=== PATIENT | male | born 1950 ===

== ENCOUNTER 2025-05-04 08:16 | Outpatient (CLI) | payer MEDICARE, SELFPAY ==
[2025-05-04 08:37] LABS: LDH 546 U/L (85-227); Uric Acid 4.9 mg/dL (3.5-7.2)
== END 2025-05-04 08:17 | disposition home or self-care (01) ==
LOC: LBO 08:17
PROVIDERS: Visit Provider Internal Medicine Hematology & Oncology
DX: C83.18 Mantle cell lymphoma, lymph nodes of multiple sites (principal)
CPT/HCPCS: 36415; 80053; 82784; 83615; 84550; 85025

== ENCOUNTER 2025-05-11 12:09 | Outpatient (CLI) | payer MEDICARE, SELFPAY ==
[2025-05-11 12:04] LABS: HCT 31.5 % (40.0-50.0); HGB 9.5 g/dL (13.5-17.5); MCH 28.9 pg (27.0-33.0); MCHC 30.2 % (32.0-36.0); MCV 96 fL (80-95); MPV 9.7 fL (8.0-11.0); Platelet Count 209 10^3/uL (130-400); RBC 3.29 10^6/uL (4.36-5.78); RDW 18.0 % (11.8-14.1); RDW-SD 61.2 fL
[2025-05-11 12:28] LABS: ALT 27 U/L (16-63); AST 16 U/L (15-37); Albumin 3.1 g/dL (3.4-5.0); Alkaline Phosphatase 76 U/L (46-116); Anion Gap 9.1 mmol/L (3-11); BUN 39 mg/dL (7-18); Bilirubin, Total 0.4 mg/dL (0.2-1.0); CO2 23.9 mmol/L (21.0-32.0); Calcium 8.2 mg/dL (8.5-10.1); Chloride 105 mmol/L (98-107); Estimated GFR 78.49 (mL/min/1.73m2); Glucose 95 mg/dL (74-106); LDH 597 U/L (85-227); Potassium 4.8 mmol/L (3.5-5.1); Sodium 138 mmol/L (136-145); Total Protein 5.6 g/dL (6.4-8.2); Uric Acid 4.9 mg/dL (3.5-7.2)
[2025-05-11 13:19] LABS: Abs Immature Grans 0.00 10^3/uL (0.0-0.06); Immature Grans % 0.0 %; RBC Morphology Normal
[2025-05-11 13:25] LABS: WBC 151.19 10^3/uL (4.4-10.8)
== END 2025-05-11 12:10 | disposition home or self-care (01) ==
LOC: LBO 12:09
PROVIDERS: Visit Provider Internal Medicine Hematology & Oncology
DX: C83.18 Mantle cell lymphoma, lymph nodes of multiple sites (principal)
CPT/HCPCS: 36415; 80053; 82784; 83615; 84550; 85025

== ENCOUNTER 2025-05-18 02:44 | Outpatient (CLI) | payer MEDICARE, SELFPAY ==
[2025-05-18 13:34] LABS: Abs Immature Grans 0.38 10^3/uL (0.0-0.06); HCT 30.9 % (40.0-50.0); HGB 9.8 g/dL (13.5-17.5); Immature Grans % 0.4 %; MCH 29.8 pg (27.0-33.0); MCHC 31.7 % (32.0-36.0); MCV 94 fL (80-95); MPV 9.4 fL (8.0-11.0); Platelet Count 215 10^3/uL (130-400); RBC 3.29 10^6/uL (4.36-5.78); RDW 17.1 % (11.8-14.1); RDW-SD 57.5 fL
[2025-05-18 13:52] LABS: ALT 26 U/L (16-63); AST 17 U/L (15-37); Albumin 2.9 g/dL (3.4-5.0); Alkaline Phosphatase 81 U/L (46-116); Anion Gap 12.4 mmol/L (3-11); BUN 33 mg/dL (7-18); Bilirubin, Total 0.4 mg/dL (0.2-1.0); CO2 21.6 mmol/L (21.0-32.0); Calcium 9.0 mg/dL (8.5-10.1); Chloride 106 mmol/L (98-107); Estimated GFR 70.01 (mL/min/1.73m2); Glucose 120 mg/dL (74-106); LDH 605 U/L (85-227); Potassium 4.6 mmol/L (3.5-5.1); Sodium 140 mmol/L (136-145); Total Protein 5.5 g/dL (6.4-8.2); Uric Acid 5.5 mg/dL (3.5-7.2)
[2025-05-18 14:18] LABS: RBC Morphology Normal
[2025-05-18 14:22] LABS: WBC 97.86 10^3/uL (4.4-10.8)
== END 2025-05-18 02:45 | disposition home or self-care (01) ==
LOC: LBO 02:44
PROVIDERS: Visit Provider Internal Medicine Hematology & Oncology
DX: C83.18 Mantle cell lymphoma, lymph nodes of multiple sites (principal)
CPT/HCPCS: 36415; 80053; 82784; 83615; 84550; 85025

== ENCOUNTER 2025-05-25 13:22 | Outpatient (CLI) | payer MEDICARE, SELFPAY ==
[2025-05-25 13:05] LABS: Abs Immature Grans 0.54 10^3/uL (0.0-0.06); HCT 32.1 % (40.0-50.0); HGB 9.8 g/dL (13.5-17.5); Immature Grans % 0.3 %; MCH 28.6 pg (27.0-33.0); MCHC 30.5 % (32.0-36.0); MCV 94 fL (80-95); MPV 10.2 fL (8.0-11.0); Platelet Count 300 10^3/uL (130-400); RBC 3.43 10^6/uL (4.36-5.78); RDW 16.2 % (11.8-14.1); RDW-SD 54.1 fL
[2025-05-25 13:16] LABS: WBC 168.83 10^3/uL (4.4-10.8)
[2025-05-25 13:24] LABS: ALT 20 U/L (16-63); AST 19 U/L (15-37); Albumin 3.1 g/dL (3.4-5.0); Alkaline Phosphatase 72 U/L (46-116); Anion Gap 11.4 mmol/L (3-11); BUN 49 mg/dL (7-18); Bilirubin, Total 0.7 mg/dL (0.2-1.0); CO2 21.6 mmol/L (21.0-32.0); Calcium 8.7 mg/dL (8.5-10.1); Chloride 102 mmol/L (98-107); Estimated GFR 57.29 (mL/min/1.73m2); Glucose 133 mg/dL (74-106); LDH 571 U/L (85-227); Sodium 135 mmol/L (136-145); Total Protein 5.9 g/dL (6.4-8.2); Uric Acid 11.2 mg/dL (3.5-7.2)
[2025-05-25 13:28] LABS: Potassium 5.3 mmol/L (3.5-5.1)
[2025-05-25 13:35] LABS: RBC Morphology Normal
== END 2025-05-25 13:23 | disposition home or self-care (01) ==
LOC: LBO 13:23
PROVIDERS: Visit Provider Internal Medicine Hematology & Oncology
DX: C83.18 Mantle cell lymphoma, lymph nodes of multiple sites (principal)
CPT/HCPCS: 80053; 82784; 83615; 84550; 85025

== ENCOUNTER 2025-05-30 03:52 | Outpatient (CLI) | payer MEDICARE, SELFPAY ==
[2025-05-30 12:38] LABS: HCT 29.6 % (40.0-50.0); HGB 9.5 g/dL (13.5-17.5); MCH 30.2 pg (27.0-33.0); MCHC 32.1 % (32.0-36.0); MCV 94 fL (80-95); MPV 10.6 fL (8.0-11.0); Platelet Count 376 10^3/uL (130-400); RBC 3.15 10^6/uL (4.36-5.78); RDW 16.1 % (11.8-14.1); RDW-SD 54.3 fL
[2025-05-30 13:07] LABS: ALT 18 U/L (16-63); AST 19 U/L (15-37); Albumin 2.8 g/dL (3.4-5.0); Alkaline Phosphatase 57 U/L (46-116); Anion Gap 12.9 mmol/L (3-11); BUN 47 mg/dL (7-18); Bilirubin, Total 0.8 mg/dL (0.2-1.0); CO2 18.1 mmol/L (21.0-32.0); Calcium 9.1 mg/dL (8.5-10.1); Chloride 103 mmol/L (98-107); Estimated GFR 57.29 (mL/min/1.73m2); Glucose 118 mg/dL (74-106); LDH 458 U/L (85-227); Potassium 4.3 mmol/L (3.5-5.1); Sodium 134 mmol/L (136-145); Total Protein 5.5 g/dL (6.4-8.2); Uric Acid 8.6 mg/dL (3.5-7.2)
[2025-05-30 13:17] LABS: Abs Immature Grans 0.00 10^3/uL (0.0-0.06); Immature Grans % 0.0 %; RBC Morphology Normal
[2025-05-30 13:18] LABS: WBC 96.81 10^3/uL (4.4-10.8)
== END 2025-05-30 03:53 | disposition home or self-care (01) ==
LOC: LBO 03:52
PROVIDERS: Visit Provider Internal Medicine Hematology & Oncology
DX: C83.18 Mantle cell lymphoma, lymph nodes of multiple sites (principal)
CPT/HCPCS: 36415; 80053; 82784; 83615; 84550; 85025

== ENCOUNTER 2025-06-08 02:11 | Outpatient (CLI) | payer MEDICARE, SELFPAY ==
[2025-06-08 13:07] LABS: Abs Immature Grans 0.16 10^3/uL (0.0-0.06); HCT 26.1 % (40.0-50.0); HGB 8.1 g/dL (13.5-17.5); MCH 29.1 pg (27.0-33.0); MCHC 31.0 % (32.0-36.0); MCV 94 fL (80-95); MPV 10.3 fL (8.0-11.0); Platelet Count 367 10^3/uL (130-400); RBC 2.78 10^6/uL (4.36-5.78); RDW 15.0 % (11.8-14.1); RDW-SD 51.4 fL
[2025-06-08 13:14] LABS: WBC 41.81 10^3/uL (4.4-10.8)
[2025-06-08 13:20] LABS: ALT 20 U/L (16-63); AST 13 U/L (15-37); Albumin 2.3 g/dL (3.4-5.0); Alkaline Phosphatase 65 U/L (46-116); Anion Gap 8.6 mmol/L (3-11); BUN 26 mg/dL (7-18); Bilirubin, Total 0.6 mg/dL (0.2-1.0); CO2 24.4 mmol/L (21.0-32.0); Calcium 8.7 mg/dL (8.5-10.1); Chloride 100 mmol/L (98-107); Estimated GFR 70.01 (mL/min/1.73m2); Glucose 98 mg/dL (74-106); LDH 247 U/L (85-227); Potassium 4.2 mmol/L (3.5-5.1); Sodium 133 mmol/L (136-145); Total Protein 5.0 g/dL (6.4-8.2); Uric Acid 6.0 mg/dL (3.5-7.2)
[2025-06-08 13:41] LABS: Immature Grans % 0.0 %; RBC Morphology Normal
== END 2025-06-08 02:12 | disposition home or self-care (01) ==
LOC: LBO 02:11
PROVIDERS: Visit Provider Internal Medicine Hematology & Oncology
DX: C83.18 Mantle cell lymphoma, lymph nodes of multiple sites (principal)
CPT/HCPCS: 36415; 80053; 82784; 83615; 84550; 85025

== ENCOUNTER 2025-06-13 11:00 | Outpatient (RCR) | payer MEDICARE, SELFPAY ==
[2025-06-09] MEDS: Normal Saline Flush 10 ML SYR IVP (11:50)
[2025-06-13 12:40] LABS: HCT 23.8 % (40.0-50.0); HGB 7.7 g/dL (13.5-17.5); MCH 29.1 pg (27.0-33.0); MCHC 32.4 % (32.0-36.0); MPV 10.1 fL (8.0-11.0); Platelet Count 379 10^3/uL (130-400); RBC 2.65 10^6/uL (4.36-5.78); RDW 15.6 % (11.8-14.1); RDW-SD 50.4 fL
[2025-06-13 12:49] LABS: MCV 90 fL (80-95)
[2025-06-13 12:54] LABS: ALT 16 U/L (16-63); AST 12 U/L (15-37); Albumin 2.1 g/dL (3.4-5.0); Alkaline Phosphatase 59 U/L (46-116); Anion Gap 10.2 mmol/L (3-11); BUN 25 mg/dL (7-18); Bilirubin, Total 0.4 mg/dL (0.2-1.0); CO2 21.8 mmol/L (21.0-32.0); Calcium 8.3 mg/dL (8.5-10.1); Chloride 103 mmol/L (98-107); Estimated GFR 78.49 (mL/min/1.73m2); Glucose 114 mg/dL (74-106); LDH 215 U/L (85-227); Potassium 3.8 mmol/L (3.5-5.1); Sodium 135 mmol/L (136-145); Total Protein 5.0 g/dL (6.4-8.2); Uric Acid 4.9 mg/dL (3.5-7.2)
[2025-06-13 13:20] LABS: WBC 30.65 10^3/uL (4.4-10.8)
[2025-06-13 13:36] VITALS: BP 89/54; PULSE 94; RESP 20; TEMP 36.4; O2SAT 98
[2025-06-13 13:51] VITALS: BP 102/60; PULSE 83; RESP 19; TEMP 36.9; O2SAT 98
[2025-06-13 14:13] VITALS: BP 110/59; PULSE 82; RESP 20; TEMP 36.4; O2SAT 96
[2025-06-13 14:49] VITALS: BP 113/60; PULSE 82; RESP 20; TEMP 36.4; O2SAT 99
[2025-06-13 15:30] VITALS: BP 109/66; PULSE 82; RESP 20; TEMP 36.3; O2SAT 99
[2025-06-13] MEDS: Furosemide 20 MG/2 ML VIAL IVP (15:31)
[2025-06-13] MEDS: Normal Saline Flush 10 ML SYR IVP (15:31)
== END 2025-07-03 23:59 | disposition home or self-care (01) ==
LOC: INF 11:00
PROVIDERS: Visit Provider Internal Medicine Hematology & Oncology
DX: C91.10 Chronic lymphocytic leukemia of B-cell type not having achieved remission (principal)
CPT/HCPCS: 36415; 36430; 80053; 85027; 86850; 86900; 86901; 86920; 83615; 84550; 86880; J1938; P9016